=== PATIENT | male | born 1985 | race Caucasian/White ===

== ENCOUNTER 2020-11-24 19:00 | Emergency (ER) | payer BC, OTHER ==
[~2020-11-24 19:00] MED LIST: BENTYL 10MG CAP10 MG PO; COLACE100 MG PO; IBUPROFEN800 MG PO; ZOFRAN 4 MG TAB4 MG PO
== END 2020-11-24 19:21 | disposition left against medical advice (07) ==
LOC: ER1 19:00
DX: Z53.21 Procedure and treatment not carried out due to patient leaving prior to being seen by health care provider (principal)
CPT/HCPCS: 93005